=== PATIENT | male | born 1995 | race African-American/Black ===

== ENCOUNTER 2017-03-10 11:03 | Emergency (ER) | payer OTHER ==
[~2017-03-10] VITALS: Ht 177.8 cm; Wt 70.0 kg
[2017-03-10 11:40] VITALS: BP 114/64
[2017-03-10] MEDS: IBUPROFEN 800MG TABLET PO ONE (13:17)
== END 2017-03-10 13:28 | disposition home or self-care (01) ==
LOC: ER 11:03
DX: M54.2 Cervicalgia (principal); M79.641 Pain in right hand; M54.9 Dorsalgia, unspecified; V49.88XA Car occupant (driver) (passenger) injured in other specified transport accidents, initial encounter; W22.19XA Striking against or struck by other automobile airbag, initial encounter; Y93.89 Activity, other specified; Y92.89 Other specified places as the place of occurrence of the external cause; Y99.8 Other external cause status
CPT/HCPCS: 72100; 73130; 99284